=== PATIENT | male | born 1975 | race Caucasian/White ===

== ENCOUNTER 2023-11-18 15:11 | Emergency (ER) | payer MEDICAID ==
[~2023-11-18] VITALS: Ht 188 cm; Wt 86.2 kg
[2023-11-18 15:16] VITALS: BP 161/105; PULSE 123; RESP 18; TEMP 97.8; O2SAT 97
== END 2023-11-18 15:52 | disposition home or self-care (01) ==
LOC: MED 15:11
DX: S01.81XA Laceration without foreign body of other part of head, initial encounter (principal); Z79.899 Other long term (current) drug therapy; W01.198A Fall on same level from slipping, tripping and stumbling with subsequent striking against other object, initial encounter; Y93.89 Activity, other specified; Y92.89 Other specified places as the place of occurrence of the external cause; Y99.8 Other external cause status
CPT/HCPCS: 12013; 90471; 90715; 99283